=== PATIENT | female | born 1955 | race Caucasian/White ===

== ENCOUNTER → 2016-07-07 | Day surgery (SDC) | payer BC ==
[~2016-07-07] VITALS: Ht 167.6 cm; Wt 109.0 kg
[~2016-07-07] MED LIST: ACET30TA PO; ACETAMINOPHEN 325 MG TAB PO PRN; ACT30 PO; ALBU18002 INH; AMR2 PO; AMT50 PO; ASPEC81 PO; ATEN-173 PO; ATOR10TA88 PO; ATROPINE SULFATE 0.1 MG/ML 5ML SYR IV PRN; BENZ100C84 PO; BUPR100T8 PO; CALCTAB7 PO; CRS10 PO; CYCL10TA6 PO; DiphenhydrAMINE HCL 50 MG/ML VIAL ONE; GLC500 PO; HEPARIN SOD (PORCINE) 1000 UNIT/ML 10 ML VIAL ONE; LEVO100T48 PO; LEVO112T4 PO; LISI-461 PO; LOSA50TA6 PO; MELOXICAM PO; METFTAB PO; METHYLPREDNISOLONE 125 MG VIAL ONE; MIDAZOLAM HCL 1 MG/ML 2ML VIAL ONE; NITROGLYCERIN/D5W 100MCG/ML 20ML SYR ONE; NRN/300 PO; NiCARDipine HCL INJ 2.5 MG/ML 10 ML AMP ONE; ONDANSETRON INJ 2 MG/ML 2 ML VIAL IV PRN; PRM625 PO; RANITIDINE HCL 25 MG/ML INJ ONE; SODIUM CHLORIDE 0.9% 1000ML 1,000 ML IV SCH; SODIUM CHLORIDE 0.9% 1000ML 250 ML IV PRN; elavil PO
[2016-07-07 08:56] VITALS: BP 122/104; PULSE 83; TEMP 36.6; O2SAT 96; Ht 167.6 cm; Wt 109.0 kg
--- NOTE | 2016-07-07 12:27 | History & Physical Bridge Note ---
H&P Re-Evaluation Bridge Note: I have examined the patient, reviewed the History & Physical and in the interval since the performance of the History & Physical I have noted the following changes of clinical significance: No changes noted
--- NOTE | 2016-07-07 12:34 | Cardiac Catheterization ---
Procedure Note Procedure Date Jul 07, 2016. Pre-Procedure Diagnosis Positive Stress Test AUC Score 7 Post-Procedure Diagnosis Normal Coronary Arteries Procedure(s) Performed Coronary Angiography Corporate Travel Consultant Dr. Ramirez Contact Center Manager(s) None Estimated Blood Loss None Medication(s) Heparin, Versed, Lidocaine 1%, Diphenhydramine Summary of Findings Normal Coronaries Hemodynamics Rest Ao: 129/76 Final Ao: 149/91 LV: Valve not Crossed Recommendations None Specimens None Radiation Exposure (mGy) 442 Contrast (mls) 66 Fluids (cc crystalloids) 135 Disposition Manager Drilling Holding/Recovery ACC Data Cardiac Status Clinical evaluation leading to the procedure CAD Presntation: Sx unlikely to be ischemic, Positive Stress Test Anginal Classification: CCS I Heart Failure: No Cardiogenic Shock w/in 24Hrs: No Cardiac Arrest w/in 24Hrs: No Imaging studies past 6 months: Yes Stress studies past 6 months: Yes Standard Exercise Stress Test: No Stress Echocardiogram: No Stress Testing w/SPECT MPI: Yes - Positive Cardiac CTA: No Coronary Anatomy Dominant: Right Left Main (% Stenosis): Normal LAD (% Stenosis): Normal Circumflex (% Stenosis): Normal RCA (% Stenosis): Normal Diagnostic Status: Elective Closure Device Percutaneous Entry Location: Radial Closure Device: Radial Band Recommendations: None
--- NOTE | 2016-07-07 12:39 | Discharge Instructions ---
Discharge Instructions Procedure Procedure Date: Jul 07, 2016. Reason for Visit: Abn Stress Test * To Do*. Discharge Discharge Date: Jul 07, 2016. Discharge Diagnosis: Normal coronaries Last Recorded Wt (Kilograms): 109 Anesthesia Post Anesthesia Instructions: If you have had General Anesthesia or IV Sedation: * Do not drive today. * Resume driving when surgeon permits. * Do not make important decisions or sign legal documents today. * Call surgeon for: 1. Temperature elevations greater than 101 degrees F. 2. Uncontrollable pain. 3. Excessive bleeding. 4. Persistent nausea and vomiting. 5. Medication intolerance (nausea, vomiting or rash). * For nausea and vomiting use only clear liquids such as: tea, soda, bouillon until nausea subsides, then gradually increase diet as tolerated. * If you have any concerns or questions, call your surgeon's office. If physician is unavailable and it is an emergency, call 911 or go to the nearest emergency room. Instructions Activity Recommendations: no limitations Recommended Home Diet: resume previous diet Allergies: Coded Allergies: Aspirin (Verified Allergy, Unknown, HIVES, 07/31/09) Chlorpheniramine (Verified Allergy, Unknown, HIVES, 07/31/09) Iodine (Verified Allergy, Unknown, HIVES, 07/31/09) Phenylpropanolamine (Verified Allergy, Unknown, HIVES, 07/31/09) Uncoded Allergies: CONTRASTMEDIA (Allergy, Unknown, HIVES, 07/31/09) Provider Instructions ACTIVITY RECOMMENDATIONS: Excess manipulation of the wrist should be avoided for the next 24-48 hours. * No lifting over 2 pounds (approximately a 1/2 gallon of milk) with the utilized arm for 24 hours. * No strenuous activity such as bowling or tennis for 3 days. * Keep the site of the procedure covered with a bandage for 24 hours. *You may shower the day after the procedure. Do not take a tub bath or submerge the puncture site in water for the next 3 days. *Do not operate any motorized equipment for 3 days. SPECIAL CARE INSTRUCTIONS: The site may be slightly bruised and sore following your procedure. Should any of the following occur, contact the DrKimber who performed your procedure. 1. Redness/inflammation, swelling, chills, or fever, or colored drainage at procedure site within 3-7 days after your procedure. 2. Coldness, discoloration, ongoing numbness, severe pain, or swelling. Expect mild tingling of hand and tenderness at the puncture site for up to three days. If this persists beyond three days, or other symptoms develop, notify the Dr. who performed your procedure. BLEEDING: If the procedure site on your wrist begins to bleed, do not panic 1. Place 1 or 2 fingers firmly just slightly above the insertion site to stop the bleeding. You may be able to feel your pulse as you hold pressure. 2. Lift your finger after 5 minutes to see if the bleeding has stopped. 3. Once the bleeding has stopped, gently wipe the wrist area clean with a bandage. * If the bleeding from your wrist does not stop after 10 minutes, or if there is a large amount of bleeding or spurting, call 911 (do not drive yourself to the hospital). SKIN IRRITATION: * You may experience some redness and/or swelling in the area where radiation was administered. If any skin irritation occurs, please contact your family physician. FOLLOW UP VISIT: Keep any scheduled doctor appointments. Follow Up Follow-up with: Cardiology office will call Qiana Villavicencio Recommendations: Call your doctor if: * Temperature above 101 degrees * Pain not relieved by pain medicine ordered * There is increased drainage or redness from any incision * You have any unanswered questions or concerns. Your Doctors Instructions noted above were prepared by provider Gallito Ramirez. Patient Signature Section: Patient Instructions Signature Page Bridgette Krishnan Patient (or Guardian) Signature/Date: I have read and understand the instructions given to me by my caregivers. Caregiver/RN/Doctor Signature/Date: The above-named patient and/or guardian has received patient instructions on this date. + Original Patient Signature Page (only) stays with chart. Please make copy for patient.
--- NOTE | 2016-07-07 12:53 | CARDIAC CATH REPORT ---
PROCEDURE: Coronary angiography. HISTORY OF PRESENT ILLNESS: The patient is a 61-year-old female who presented with atypical chest pain and was noted to have frequent PVCs. She underwent a pharmacologic nuclear stress test as an outpatient that suggested distal anterior wall ischemia. PROCEDURE SUMMARY: The patient was seen and evaluated in the holding area of the mechanical laboratory technician. After informed consent was obtained, the patient was then transferred to the cardiac catheterization lab, prepped and draped in the usual manner for a right transradial approach. A Barbeau maneuver was performed. Preformed 4-Marshallese diagnostic catheter was utilized for the coronary angiograms. Following the procedure, the patient was returned to the holding area of the mechanical laboratory technician in stable condition. CORONARY ANGIOGRAPHY: Selective injections of the left coronary artery revealed the left main trunk to be patent. The LAD extends to the apex of the heart. The LAD system is smooth in appearance, widely patent, and within normal limits. The left circumflex consists mainly of a large lateral marginal branch. Left circumflex system is smooth in appearance, widely patent, and within normal limits. Selective injections of the right coronary artery reveal it to be dominant. The right coronary artery is smooth in appearance, widely patent, and within normal limits. IMPRESSION: Normal coronary arteries. RECOMMENDATIONS: The patient will return for followup and care regarding her frequent PVCs.
[2016-07-07 14:15] VITALS: BP 143/95; PULSE 82; O2SAT 94
== END | disposition home or self-care (01) ==
LOC: C.CATH 08:37
PROVIDERS: ATTEND Internal Medicine Interventional Cardiology
DX: R94.39 Abnormal result of other cardiovascular function study (principal); R07.89 Other chest pain; I49.3 Ventricular premature depolarization; Z91.041 Radiographic dye allergy status; E03.9 Hypothyroidism, unspecified; E88.81 Metabolic syndrome and other insulin resistance; D12.6 Benign neoplasm of colon, unspecified; E11.9 Type 2 diabetes mellitus without complications; E78.5 Hyperlipidemia, unspecified; E55.9 Vitamin D deficiency, unspecified; G47.33 Obstructive sleep apnea (adult) (pediatric); I10 Essential (primary) hypertension; M51.36 Other intervertebral disc degeneration, lumbar region; F41.9 Anxiety disorder, unspecified; E66.01 Morbid (severe) obesity due to excess calories; N95.2 Postmenopausal atrophic vaginitis

== ENCOUNTER → 2018-02-13 | Outpatient (CLI) | payer OTHER ==
[~2018-02-13] MED LIST changes: -ACETAMINOPHEN 325 MG TAB PO PRN; -ACT30 PO; -ATEN-173 PO; +ATOR10TA82 PO; -ATOR10TA88 PO; -ATROPINE SULFATE 0.1 MG/ML 5ML SYR IV PRN; -CRS10 PO; -DiphenhydrAMINE HCL 50 MG/ML VIAL ONE; -GLC500 PO; -HEPARIN SOD (PORCINE) 1000 UNIT/ML 10 ML VIAL ONE; -LEVO100T48 PO; -LISI-461 PO; -METHYLPREDNISOLONE 125 MG VIAL ONE; -MIDAZOLAM HCL 1 MG/ML 2ML VIAL ONE; -NITROGLYCERIN/D5W 100MCG/ML 20ML SYR ONE; -NiCARDipine HCL INJ 2.5 MG/ML 10 ML AMP ONE; -ONDANSETRON INJ 2 MG/ML 2 ML VIAL IV PRN; -RANITIDINE HCL 25 MG/ML INJ ONE; -SODIUM CHLORIDE 0.9% 1000ML 1,000 ML IV SCH; -SODIUM CHLORIDE 0.9% 1000ML 250 ML IV PRN
[2018-02-13 17:14] LABS: BLOOD UREA NITROGEN 12 mg/dl (7-18); CREATININE 0.96 mg/dl (0.60-1.20)
== END | disposition home or self-care (01) ==
LOC: C.LABPBG 12:23
PROVIDERS: ATTEND Otolaryngology
DX: Z01.818 Encounter for other preprocedural examination (principal)

== ENCOUNTER → 2018-02-16 | Outpatient (CLI) | payer OTHER ==
[~2018-02-16] MED LIST changes: +GADAVIST IV PRN
--- NOTE | 2018-02-16 13:51 | DIAGNOSTIC IMAGING REPORT ---
MR ANGIOGRAM OF THE BRAIN CLINICAL HISTORY: Bilateral tinnitus. COMPARISON STUDY: MRI of the brain performed concurrently on 02/16/2018. TECHNIQUE: 3-D [id number] MR angiography of the intracranial circulation is performed. 3-D tumble views are created and assessed. IV contrast was not administered for this examination. The examination is modestly degraded by motion artifact. FINDINGS: The upper [place] is developmentally complete with large bilateral posterior commuting arteries. The internal carotid arteries are widely patent bilaterally, as are the anterior and middle cerebral arteries. The vertebrobasilar system is diminutive but patent. The posterior cerebral arteries are widely patent. The vertebral arteries are codominant. 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 No additional aneurysm is seen. There is no high-grade stenosis or focal vessel cutoff seen throughout the intracranial circulation. The brain parenchyma is normal as visualized. IMPRESSION: 1. 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 2. Otherwise unremarkable MR angiogram of the neck. Electronically signed by: Marquis Henderson M.D. 02/16/2018 1:50 PM Dictated Date/Time: 02/16/2018 1:44 PM
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
== END | disposition home or self-care (01) ==
LOC: C.MRI 12:19
PROVIDERS: ATTEND Otolaryngology
DX: H93.A3 Pulsatile tinnitus, bilateral (principal)